=== PATIENT | female | born 1970 | race Caucasian/White ===

== ENCOUNTER 2017-01-11 16:47 | Emergency (ER) | payer MEDICAID ==
[2017-01-11] MEDS ORDERED: hydrOXYzine HCL 50 MG TAB PO PRN (17:16)
--- NOTE | 2017-01-11 17:22 | EDPHY ---
General Narrative: CHIEF COMPLAINT: Bladder spasms HISTORY OF PRESENT ILLNESS: Patient complains of sudden onset of bladder spasm and pain. This happened within the past hour. She was leaving the office of her surgeon to have riri removed from her laparotomy that occurred 10 days ago. She said she felt well until leaving the office. The pain happened very suddenly. It was a very sharp, spasm type pain. She could feel her heart beating it was so severe. She had no upper abdominal pain. The pain did radiate into the flanks. No nausea or vomiting. No fever or chills. No chest pain or shortness of breath. No generalized abdominal pain. She does feel that as she has urinated recently she has had difficulty completely emptying her bladder. She has no bleeding of any kind today or yesterday. She was discharged home for a very complicated admission for acute GI bleed requiring surgical intervention. She has had bowel movements postoperatively without any bleeding and complaints constipation. PREVIOUS ABDOMINAL SURGERIES/DIAGNOSES: Laparotomy with SBR January 08 REVIEW OF SYSTEMS: Ten systems reviewed and are negative unless otherwise noted in the HPI EXAMINATION: General Appearance: Alert, no distress. Anxious Head: normocephalic, atraumatic Eyes: Pupils equal and round, no conjunctival pallor or injection ENT, Mouth: Mucous membranes moist. Uvula midline. No erythema or edema. Neck: Normal inspection, supple, non-tender Respiratory: Lungs are clear to auscultation. No wheezing, rhonchi or crackles. Cardiovascular: Regular rate and rhythm. No murmur. Pulses intact distally. Gastrointestinal: Obese abdomen that is soft. Tenderness around the midline surgical incision that is clean, dry and intact. There is no purulence, fluctuance or erythema. No rebound or guarding. Mild CVA tenderness. Neurological: A&O, nonfocal Skin: Warm and dry, no rash. There is a laparotomy incision that is clean, dry and intact. No surrounding purulence, fluctuance or induration. Bruising about the forearms bilaterally. Extremities: Nontender, no pedal edema Psychiatric: Mood and affect normal DIFFERENTIAL DIAGNOSES: Including but not limited to bladder spasm, UTI, cystitis, urethritis, pyelonephritis MDM: 5:15 p.m. Acute bladder spasm and suprapubic pain. The patient feels that she could not actually void, and felt that there bladder was spasming so tight that she was difficulty urinating. She also felt that she was potentially having a panic attack/anxiety reaction is. She is resting comfortably but obviously anxious about this. Bladder scan has already been performed shows no residual volume. She is provided a urine sample for us. We will send a urinalysis and administer hydroxyzine for her possible anxiety component. She is comfortable with this plan. She is in no acute distress with stable vital signs. 5:40 p.m. Urinalysis does show evidence of urinary tract infection. She is feeling better with her hydroxyzine. I sat down and discussed the case with her and the likelihood that she does have a UTI is high. She agrees with this assessment. She says that she felt that she over-reacted from this. I reassured her that she has had a very difficult 2 weeks with a very severe illness and emergent hospitalization. Instructed her to take the antibiotics and monitor her symptoms over the next 24-48 hours. She is to return to the ER should she have any worsening pain, flank pain, fever, nausea vomiting. She is also to return to the ER for any bleeding from any site. She is comfortable this plan, she is much more calm at time of discharge, and she is discharged home in stable condition. ED Precautions: Worsening pain. Fever. Bloody stools. Bloody emesis. Constipation or diarrhea. SUPERVISION: Patient was evaluated in conjunction with the supervising physician. Please see their note for details. - History Smoking Status: Former smoker - Objective Vital Signs: Initial Vital Signs Temperature (C) 97.5 F 01/11/17 16:50 Heart Rate 94 01/11/17 16:50 Respiratory Rate 18 01/11/17 16:50 Blood Pressure 119/85 H 01/11/17 16:50 O2 Sat (%) 92 01/11/17 16:50 O2 Delivery Mode Room Air Allergies/Adverse Reactions: oxcarbazepine Allergy (Severe, Verified 01/11/17 16:56) Rash droperidol Allergy (Intermediate, Verified 01/11/17 16:56) Other-Enter Comments Home Medications: Medication Instructions Recorded Oxycodone HCl [Oxycontin] 10 mg PO 12/05/10 Sertraline HCl [Zoloft] mg PO DAILY 12/05/10 VALSARTAN [Diovan] 80 mg PO 12/05/10 clonAZEPAM [Klonopin] mg PO 12/05/10 WARFARIN SODIUM [Coumadin] 0 mg PO 05/31/11 KLONOPIN 09/25/15 Amitriptyline 100 mg 01/19/16 Atorvastatin Calcium 01/19/16 Cyclobenzaprine HCl 01/19/16 Oxycodone HCl 01/19/16 busPIRone 01/19/16 Cephalexin [Keflex (*)] 500 mg PO TID #30 cap 01/11/17 Laboratory Results: 01/11/17 17:10 Urine Color DENEEN Urine Appearance MODERATELY TURBID Urine pH 7.0 (5.0-7.5) Ur Specific [place] 1.008 (1.002-1.030) Urine Protein NEGATIVE (NEGATIVE) Urine Ketones NEGATIVE (NEGATIVE) Urine Blood 2+ H (NEGATIVE) Urine Nitrate POSITIVE H (NEGATIVE) Urine Bilirubin NEGATIVE (NEGATIVE) Urine Urobilinogen 2.0 EU H EU (0.2-1.0) Ur Leukocyte Esterase 3+ H (NEGATIVE) Urine RBC 25-50 /hpf H /hpf (0-3) Urine WBC 50-182 /hpf H /hpf (0-3) Ur Epithelial Cells TRACE /lpf /lpf (NONE-1+) Urine Bacteria 4+ /hpf H /hpf (NONE SEEN) Urine Mucus TRACE /lpf /lpf (NONE-1+) Ur Culture Indicated? INDICATED H (NI) Urine Glucose NEGATIVE (NEGATIVE) Departure - Departure Disposition: Home, Routine, Self-Care Clinical Impression: Bladder spasm UTI (urinary tract infection) Qualifiers: Urinary tract infection type: acute cystitis Hematuria presence: without hematuria Qualified Code(s): N30.00 - Acute cystitis without hematuria Condition: Good Instructions: Urinary Tract Infection in Women (ED) Additional Instructions: Medications as discussed. Follow up with primary care physician. Return to ER for any bleeding from any site or any abdominal pain Referrals: NOT,SURE [Other] - As per Instructions Merary Meneses MD [Medical Doctor] - As per Instructions Prescriptions: Cephalexin [Keflex (*)] 500 mg PO TID #30 cap
[2017-01-11 17:28] LABS: COLOR AMBER; LEUKOCYTE ESTERASE,URINE 3+ (NEGATIVE); NITRITE,URINE POSITIVE (NEGATIVE)
[2017-01-11 17:30] LABS: BACTERIA 4+ /hpf (NONE SEEN); MUCUS TRACE /lpf (NONE-1+); RBC,URINE 25-50 /hpf (0-3); WBC,URINE 50-182 /hpf (0-3)
[2017-01-11] MEDS ORDERED: CEPHALEXIN 500 MG CAP PO ONE ×2 (17:40→17:41)
[2017-01-11 18:02] VITALS: BP 128/76; PULSE 76; RESP 20; TEMP 98.1; O2SAT 96
== END 2017-01-11 18:02 | disposition home or self-care (01) ==
DX: N32.89 Other specified disorders of bladder (principal); N30.00 Acute cystitis without hematuria; B96.20 Unspecified Escherichia coli [E. coli] as the cause of diseases classified elsewhere; Z79.01 Long term (current) use of anticoagulants; Z87.891 Personal history of nicotine dependence

== ENCOUNTER 2017-05-31 16:46 | Emergency (ER) | payer MEDICAID ==
[2017-05-31 16:57] VITALS: PULSE 64
--- NOTE | 2017-05-31 17:34 | EDPHY ---
H & P Time Seen by Provider: 05/31/17 17:11 HPI/ROS: CHIEF COMPLAINT: Shortness of breath, "feeling hot" HISTORY OF PRESENT ILLNESS: The patient is a 46-year-old female with a history of factor 5 Leiden on Coumadin for previous PE who presents to the emergency department with shortness of breath. Patient states that over the past 2 months she has had a diffuse red colored skin rash. She seen a doctor multiple times for this. She states no one can figure out the diagnosis. She has been told she may be admitted positive this is making her feel hot. She states that for the past few days she has had increasing shortness of breath. No cough or fever. No chest pain. No new leg pain or swelling. She has been taking her Coumadin regularly. REVIEW OF SYSTEMS: My complete review of systems is negative except as mentioned in the HPI. Past Medical/Surgical History: Includes factor 5 Leiden, pulmonary embolus, reflex sympathetic dystrophy, chronic pain, GI bleed, pseudo-seizure, hypertension Past surgical history: Recent surgery for GI bleed Social history: The patient smokes. She uses THC. Smoking Status: Current every day smoker Physical Exam: 36.9, 113/90, 64, 18, 92% on room air GENERAL: Well-appearing, in no acute distress, alert. HEENT: Eyes normal to inspection, normal pharynx, no signs of dehydration. NECK: No thyromegaly, no lymphadenopathy, supple. RESPIRATORY: Clear to auscultation bilaterally, no rales, rhonchi or wheezing. Normal CVS: Regular rate and rhythm, no rubs, murmurs, or gallops. ABDOMEN: Soft, nontender, nondistended, no organomegaly. BACK: Normal to inspection, no CVA tenderness. SKIN: Patient is a diffuse red colored rash. This is not raised. There are no hives. No petechiae. warm, dry. No pallor. EXTREMITIES: No pedal edema, no calf tenderness, no Homans sign or cords, no joint swelling. NEURO/PSYCH: Alert and oriented x3, normal mood and affect, normal motor sensory exam. Constitutional: Initial Vital Signs Temperature (C) 36.9 C 05/31/17 16:55 Heart Rate 64 05/31/17 16:55 Respiratory Rate 18 05/31/17 16:55 Blood Pressure 113/90 H 05/31/17 16:55 O2 Sat (%) 92 05/31/17 16:55 O2 Delivery Mode Room Air Allergies/Adverse Reactions: oxcarbazepine Allergy (Severe, Verified 05/31/17 16:53) Rash droperidol Allergy (Intermediate, Verified 05/31/17 16:53) Other-Enter Comments Home Medications: Medication Instructions Recorded Oxycodone HCl [Oxycontin] 10 mg PO 12/05/10 WARFARIN SODIUM [Coumadin] 0 mg PO 05/31/11 Atorvastatin Calcium 01/19/16 Oxycodone HCl 01/19/16 busPIRone 01/19/16 Cephalexin [Keflex (*)] 500 mg PO TID #30 cap 01/11/17 predniSONE 20 mg PO DAILY 4 Days 05/31/17 Medical Decision Making - Diagnostics Imaging Results: Imaging Impressions Chest X-Ray 05/31/17 17:28 Impression: No acute pulmonary disease. ED Course/Re-evaluation: In the emergency department I discussed possible etiologies with the patient. I answered all her questions. I reviewed her previous medical record. An IV was placed. Laboratory studies were obtained. Because the patient has a skin rash and shortness of breath I considered allergic reaction. She was given Solu -Medrol 125, Pepcid 20 mg IV and Benadryl 25 mg IV. EKG shows normal sinus rhythm, normal rate, normal axis, normal intervals. There are no ST or T-wave abnormalities. EKG is normal as interpreted by me. Patient has D-dimer was 0.27. She is anticoagulated. Her CBC chemistry unremarkable. Chest x-ray: No acute disease. On recheck the patient was feeling better after receiving the medication. I discussed all the findings with the patient and answered her questions. She will be given a 4 day course of prednisone. She is given warnings prior to leaving. She will return with worsening symptoms. Differential Diagnosis: My differential includes but is not limited to pneumonia, bronchitis, CHF, ACS, PE, allergic reaction - Data Points Laboratory Results: Laboratory Results 05/31/17 17:24 05/31/17 17:24 05/31/17 05/31/17 05/31/17 17:50 17:24 17:24 WBC RBC Hgb Hct MCV MCH MCHC RDW Plt Count MPV Neut % (Auto) Lymph % (Auto) [place] % (Auto) Eos % (Auto) Baso % (Auto) Nucleat RBC Rel Count Absolute Neuts (auto) Absolute Lymphs (auto) Absolute Monos (auto) Absolute Eos (auto) Absolute Basos (auto) Absolute Nucleated RBC Immature Gran % Immature Gran # PT 27.6 SEC H SEC (12.0-15.0) INR 2.54 H (0.83-1.16) APTT 41.4 SEC H SEC (23.0-38.0) D-Dimer < 0.27 ug/mLFEU ug/mLFEU (0.00-0.50) Sodium 138 mEq/L mEq/L (134-144) Potassium 4.5 mEq/L mEq/L (3.5-5.2) Chloride 102 mEq/L mEq/L (97-110) Carbon Dioxide 25 mEq/l mEq/l (22-31) Anion Gap 11 mEq/L mEq/L (8-16) BUN 17 mg/dL mg/dL (7-23) Creatinine 0.8 mg/dL mg/dL (0.6-1.0) Estimated GFR > 60 Glucose 121 mg/dL H mg/dL (70-100) Calcium 9.7 mg/dL mg/dL (8.5-10.4) Troponin I < 0.012 ng/mL ng/mL (0.000-0.034) NT-Pro-B Natriuret Pep 253 pg/mL H pg/mL (0-125) Urine Color YELLOW Urine Appearance HAZY Urine pH 5.0 (5.0-7.5) Ur Specific [place] 1.018 (1.002-1.030) Urine Protein NEGATIVE (NEGATIVE) Urine Ketones NEGATIVE (NEGATIVE) Urine Blood NEGATIVE (NEGATIVE) Urine Nitrate NEGATIVE (NEGATIVE) Urine Bilirubin NEGATIVE (NEGATIVE) Urine Urobilinogen NEGATIVE EU EU (0.2-1.0) Ur Leukocyte Esterase NEGATIVE (NEGATIVE) Urine Glucose NEGATIVE (NEGATIVE) 05/31/17 17:24 WBC 6.04 10^3/uL 10^3/uL (3.80-9.50) RBC 5.21 10^6/uL 10^6/uL (4.18-5.33) Hgb 14.3 g/dL g/dL (12.6-16.3) Hct 41.6 % % (38.0-47.0) MCV 79.8 fL L fL (81.5-99.8) MCH 27.4 pg L pg (27.9-34.1) MCHC 34.4 g/dL g/dL (32.4-36.7) RDW 14.7 % % (11.5-15.2) Plt Count 180 10^3/uL 10^3/uL (150-400) MPV 8.3 fL L fL (8.7-11.7) Neut % (Auto) 56.6 % % (39.3-74.2) Lymph % (Auto) 31.0 % % (15.0-45.0) [place] % (Auto) 11.4 % % (4.5-13.0) Eos % (Auto) 0.3 % L % (0.6-7.6) Baso % (Auto) 0.0 % L % (0.3-1.7) Nucleat RBC Rel Count 0.0 % % (0.0-0.2) Absolute Neuts (auto) 3.42 10^3/uL 10^3/uL (1.70-6.50) Absolute Lymphs (auto) 1.87 10^3/uL 10^3/uL (1.00-3.00) Absolute Monos (auto) 0.69 10^3/uL 10^3/uL (0.30-0.80) Absolute Eos (auto) 0.02 10^3/uL L 10^3/uL (0.03-0.40) Absolute Basos (auto) 0.00 10^3/uL L 10^3/uL (0.02-0.10) Absolute Nucleated RBC 0.00 10^3/uL 10^3/uL (0-0.01) Immature Gran % 0.7 % % (0.0-1.1) Immature Gran # 0.04 10^3/uL 10^3/uL (0.00-0.10) PT INR APTT D-Dimer Sodium Potassium Chloride Carbon Dioxide Anion Gap BUN Creatinine Estimated GFR Glucose Calcium Troponin I NT-Pro-B Natriuret Pep Urine Color Urine Appearance Urine pH Ur Specific [place] Urine Protein Urine Ketones Urine Blood Urine Nitrate Urine Bilirubin Urine Urobilinogen Ur Leukocyte Esterase Urine Glucose Medications Given: Discontinued Medications Diphenhydramine HCl (Benadryl Injection) 25 mg IVP EDNOW ONE Stop: 05/31/17 17:36 Last Admin: 05/31/17 17:53 Dose: 25 mg Methylprednisolone Sodium Succinate (Solu-Medrol) 125 mg IVP EDNOW ONE Stop: 05/31/17 17:36 Last Admin: 05/31/17 17:53 Dose: 125 mg Departure - Departure Disposition: Home, Routine, Self-Care Clinical Impression: Shortness of breath Condition: Good Instructions: Dyspnea (ED) Additional Instructions: Return with increasing shortness of breath, fever, leg pain, swelling or any other concerns. Referrals: ALPHONSO ISRAEL [Primary Care Provider] - 5-7 days, if not improved Prescriptions: predniSONE 20 mg PO DAILY 4 Days
[2017-05-31] MEDS ORDERED: methylPREDNISolone SOD SUCC 125 MG/2 ML VIAL IVP ONE (17:35)
[2017-05-31 17:39] LABS: % IMMATURE GRANULYOCYTES 0.7 % (0.0-1.1); ABSOLUTE IMMATURE GRANULOCYTES 0.04 10^3/uL (0.00-0.10); ADD DIFF? NO; ADD MORPH? NO; ADD SCAN? NO; ATYPICAL LYMPHOCYTE FLAG 10 (0-99); FRAGMENT RBC FLAG 0 (0-99); HEMATOCRIT 41.6 % (38.0-47.0); HEMOGLOBIN 14.3 g/dL (12.6-16.3); LEFT SHIFT FLG 0 (0-99); LIPEMIA HEMOLYSIS FLAG 90 (0-99); MEAN CELL HEMOGLOBIN 27.4 pg (27.9-34.1); MEAN CELL HEMOGLOBIN CONCENTR. 34.4 g/dL (32.4-36.7); MEAN CELL VOLUME 79.8 fL (81.5-99.8); MEAN PLATELET VOLUME 8.3 fL (8.7-11.7); PLATELET CLUMPS FLAG 0 (0-99); PLATELET COUNT 180 10^3/uL (150-400); RED BLOOD CELL COUNT 5.21 10^6/uL (4.18-5.33); RED CELL DISTRIBUTION WIDTH 14.7 % (11.5-15.2)
--- NOTE | 2017-05-31 17:45 | CPEKG ---
Heart Rate: 58 RR Interval: 1034 P-R Interval: 148 QRSD Interval: 104 QT Interval: 468 QTC Interval: 460 P [place]: 54 QRS [place]: 48 T Wave [place]: 4 EKG Severity - BORDERLINE ECG - EKG Impression: SINUS RHYTHM EKG Impression: BORDERLINE T WAVE ABNORMALITIES Electronically Signed By: Dania Valentine 31-May-2017 23:05:49
[2017-05-31 17:52] LABS: ANION GAP 11 mEq/L (8-16); CALCIUM 9.7 mg/dL (8.5-10.4); CARBON DIOXIDE 25 mEq/l (22-31); CHLORIDE 102 mEq/L (97-110); CREATININE 0.8 mg/dL (0.6-1.0); GLOMERULAR FILTRATION RATE > 60; GLUCOSE 121 mg/dL (70-100); POTASSIUM 4.5 mEq/L (3.5-5.2); SODIUM 138 mEq/L (134-144)
[2017-05-31 17:55] LABS: INR 2.54 (0.83-1.16); PROTIME(PATIENT) 27.6 SEC (12.0-15.0)
[2017-05-31 17:56] LABS: APTT 41.4 SEC (23.0-38.0)
[2017-05-31 18:04] LABS: TROPONIN I < 0.012 ng/mL (0.000-0.034)
[2017-05-31 18:08] LABS: COLOR YELLOW; LEUKOCYTE ESTERASE,URINE NEGATIVE (NEGATIVE); NITRITE,URINE NEGATIVE (NEGATIVE)
[2017-05-31 18:35] VITALS: BP 121/78; RESP 16; TEMP 97.9; O2SAT 94
== END 2017-05-31 19:42 | disposition home or self-care (01) ==
DX: R06.02 Shortness of breath (principal); I10 Essential (primary) hypertension; F17.200 Nicotine dependence, unspecified, uncomplicated; Z79.01 Long term (current) use of anticoagulants
CPT/HCPCS: 96374; J1200

== ENCOUNTER 2019-02-02 22:47 | Emergency (ER) | payer MEDICAID ==
[2019-02-02 22:59] VITALS: BP 139/96
--- NOTE | 2019-02-02 23:11 | EDPHY ---
H & P Stated Complaint: Bilateral shoulder and armpit pain since this afternoon Time Seen by Provider: 02/02/19 23:11 HPI/ROS: HPI CHIEF COMPLAINT: Red Rash, arms, chest, shoulders. HISTORY OF PRESENT ILLNESS: 48-year-old female, she has a history of PE and factor 5 Leiden deficiency, as well as chronic pain, RSD, history of GI bleed, pseudoseizures, hypertension, states that she is currently living out of her car. She presents emergency room stating that she believes her red rash on her arms and chest gotten worse. She is unclear of the etiology of this. She reports to me she has had this rash along time but it has gotten worse. She does report she seen her primary care doctor for this multiple times but is unclear exactly what the rash is. She denies any chest pain or shortness of breath or pleuritic pain. Denies fever. She states she is living out of her car but denies any recent direct sunlight. No new trauma. Denies any new medications. States it does not really itch. Has some burning sensation to her skin. Denies any recent fever. She does report the rash is more red than normal. But has not spread Past Medical History: Significant medical history of pulmonary embolism, chronic rash, factor 5 Leiden deficiency, RSD, GI bleed, hypertension, pseudo seizure Past Surgical History: Denies recent surgical history Social History: Denies daily use of drugs or alcohol. Homeless. Living in her car. Family History: Noncontributory ROS REVIEW OF SYSTEMS: 10 Systems were reviewed and negative with the exception of the elements mentioned in the history of present illness. Exam Constitutional triage nursing summary reviewed, vital signs reviewed, awake/ alert. Eyes normal conjunctivae and sclera, EOMI, PERRLA. HENT normal inspection, atraumatic, moist mucus membranes, no epistaxis, neck supple/ no meningismus, no raccoon eyes. Respiratory clear to auscultation bilaterally, normal breath sounds, no respiratory distress, no wheezing. Cardiovascular rate normal, regular rhythm, no murmur, no edema, distal pulses normal. Gastrointestinal soft, non-tender, no rebound, no guarding, normal bowel sounds, no distension, no pulsatile mass. Genitourinary no CVA tenderness. Musculoskeletal no midline vertebral tenderness, full range of motion, no calf swelling, no tenderness of extremities, no meningismus, good pulses, neurovascularly intact. Skin erythematous blanchable alarm her rash mainly to her anterior chest and bilateral upper arms and shoulders. It is on the area where direct sunlight would be exposed. Her tank top that she is wearing has take tap shoulder straps that where they lay on her chest and shoulders does not have rash. This appears to be where direct sunlight were skin is exposed direct sunlight. There is no particular purpura, no skin sloughing, no blisters. Neurologic awake, alert and oriented x 3, AAOx3, moves all 4 extremities equally, motor intact, sensory intact, CN II-XII intact, normal cerebellar, normal vision, normal speech. Psychiatric normal mood/affect. Heme/Lymph/Immune no lymphadenopathy. Differential Diagnosis: Includes but is not limited to in a particular order sunburn, toxic affects of some light, chronic rash, acute on chronic rash, allergic reaction. Medical Decision Making: Plan for this patient p.o. Benadryl, p.o. Pepcid, p.o. Prednisone, and Tylenol and re-evaluate. Re-evaluation: 1:33 a.m. Nursing staff notified the patient eloped from the emergency room. She did not notify staff that she was leaving. She did not have an IV. She was given Benadryl, Pepcid, prednisone and Tylenol for red skin that appeared to be either sunburn allergic reaction or both. Or some type of photosensitivity dermatitis. Plan was for re-evaluation. However patient left the emergency room prior to this. Did not notify anybody. Source: Patient - Personal History LMP (Females 10-55): Post Menopausal Current Tetanus Diphtheria and Acellular Pertussis (TDAP): No Tetanus Vaccine Date: less than 10 years - Medical/Surgical History Hx Asthma: No Hx Chronic Respiratory Disease: No Hx Diabetes: No Hx Cardiac Disease: No Hx Renal Disease: No Hx Cirrhosis: No Hx Alcoholism: No Hx HIV/AIDS: No Hx Splenectomy or Spleen Trauma: No Other PMH: 3 lumbar surgeries-blown disks, PE, Reflux Sympathetic Dystrophy, clotting disorder-Leiden factor 5, chronic pain, Abdo,david surgery for GI Bleed , pseudoseizure. HTN, Mood problem. - Social History Smoking Status: Current every day smoker Constitutional: Initial Vital Signs Temperature (C) 36.9 C 02/02/19 22:56 Heart Rate 71 02/02/19 22:56 Respiratory Rate 16 02/02/19 22:56 Blood Pressure 139/96 H 02/02/19 22:56 O2 Sat (%) 92 02/02/19 22:56 O2 Delivery Mode Room Air Allergies/Adverse Reactions: droperidol Allergy (Intermediate, Verified 02/02/19 22:55) Other-Enter Comments Home Medications: Medication Instructions Recorded Atorvastatin Calcium 01/19/16 busPIRone 01/19/16 Propranolol HCl 02/02/19 Xarelto 02/02/19 Medical Decision Making - Data Points Medications Given: Discontinued Medications Acetaminophen (Tylenol) 1,000 mg PO EDNOW ONE Stop: 02/02/19 23:36 Last Admin: 02/02/19 23:46 Dose: 1,000 mg Diphenhydramine HCl (Benadryl) 25 mg PO EDNOW ONE Stop: 02/02/19 23:36 Last Admin: 02/02/19 23:47 Dose: 25 mg Famotidine (Pepcid) 20 mg PO EDNOW ONE Stop: 02/02/19 23:40 Last Admin: 02/02/19 23:47 Dose: 20 mg Prednisone (Prednisone) 60 mg PO EDNOW ONE Stop: 02/02/19 23:40 Last Admin: 02/02/19 23:46 Dose: 60 mg Departure - Departure Disposition: Against Medical Advice Clinical Impression: Rash Condition: Good Instructions: Acute Rash (ED) Additional Instructions: 1. I would keep your arms covered from direct sunlight. Referrals: NONE *PRIMARY CARE P,. [Primary Care Provider] - As per Instructions
[2019-02-02] MEDS: predniSONE 20 MG TAB PO ONE (23:46)
[2019-02-02] MEDS: ACETAMINOPHEN 500 MG TAB PO ONE (23:46)
[2019-02-02] MEDS: FAMOTIDINE 20 MG TAB PO ONE (23:47)
[2019-02-02] MEDS: diphenhydrAMINE 25 MG CAP PO ONE (23:47)
== END 2019-02-03 01:34 | disposition left against medical advice (07) ==
DX: R21 Rash and other nonspecific skin eruption (principal); Z86.711 Personal history of pulmonary embolism; Z59.0 Homelessness
CPT/HCPCS: J7512

== ENCOUNTER 2019-02-15 06:04 | Emergency (ER) | payer MEDICAID ==
[2019-02-15 06:13] VITALS: BP 145/83
--- NOTE | 2019-02-15 07:05 | EDPHY ---
H & P Stated Complaint: rectum pain Time Seen by Provider: 02/15/19 06:58 HPI/ROS: CHIEF COMPLAINT: Requesting longterm HISTORY OF PRESENT ILLNESS: The patient is a 48-year-old homeless female who states that she has slept last night in her car and she is asking for help with longterm. She tells me that she will not go to or homeless longterm here in town because she "has a sense of smell". She told triage that she was having rectal pain. She tells me that she thinks she may have hemorrhoid but does not want me to examine it. She does have a history of PE on Xarelto as well as factor 5 Leiden deficiency as well as chronic abdominal and back pain, reflex sympathetic dystrophy and pseudoseizures. She states that she is unable to care for herself and wants to be hospitalized for 3 days. She denies recent drug or alcohol abuse. Severity: Moderate Modifying factors: None REVIEW OF SYSTEMS: Constitutional: denies: chills, fever, recent illness, recent injury EENTM: denies: blurred vision, double vision, nose congestion Respiratory: denies: cough, shortness of breath Cardiac: denies: chest pain, irregular heart rate, lightheadedness, palpitations Gastrointestinal/Abdominal: denies: abdominal pain, diarrhea, nausea, vomiting, blood streaked stools Genitourinary: denies: dysuria, frequency, hematuria, pain Musculoskeletal: denies: joint pain, muscle pain Skin: denies: lesions, rash, jaundice, bruising Neurological: denies: headache, numbness, paresthesia, tingling, dizziness, weakness Hematologic/Lymphatic: denies: blood clots, easy bleeding, easy bruising Immunologic/allergic: denies: HIV/AIDS, transplant 10 systems reviewed and negative except as noted EXAM: GENERAL: Well-appearing, overweight and in no acute distress. HEAD: Atraumatic, normocephalic. EYES: Pupils equal round and reactive to light, extraocular movements intact, sclera anicteric, conjunctiva are normal. ENT: nares patent, oropharynx clear without exudates. Moist mucous membranes. NECK: Normal range of motion, supple without lymphadenopathy or JVD. LUNGS: Breath sounds clear HEART: Regular rate and rhythm without murmurs, rubs or gallops. ABDOMEN: Soft, nontender, normoactive bowel sounds. No guarding, no rebound. No masses appreciated. BACK: No pain EXTREMITIES: Normal range of motion, no pitting or edema. No clubbing or cyanosis. NEUROLOGICAL: Cranial nerves II through XII grossly intact. Normal speech, normal gait. 5/5 strength, normal movement in all extremities, normal sensation , normal reflexes PSYCH: Normal mood, normal affect. SKIN: Warm, dry, normal turgor, no visible rashes or lesions. Source: Patient Exam Limitations: No limitations - Personal History LMP (Females 10-55): Post Menopausal Current Tetanus/Diphtheria Vaccine: Yes Current Tetanus Diphtheria and Acellular Pertussis (TDAP): Yes Tetanus Vaccine Date: less than 10 years - Medical/Surgical History Hx Asthma: No Hx Chronic Respiratory Disease: No Hx Diabetes: No Hx Cardiac Disease: No Hx Renal Disease: No Hx Cirrhosis: No Hx Alcoholism: No Hx HIV/AIDS: No Hx Splenectomy or Spleen Trauma: No Other PMH: 3 lumbar surgeries-blown disks, PE, Reflux Sympathetic Dystrophy, clotting disorder-Leiden factor 5, chronic pain, Abdo,david surgery for GI Bleed , pseudoseizure. HTN, Mood problem, sacrum surgery - Family History Significant Family History: No pertinent family hx - Social History Smoking Status: Current every day smoker Alcohol Use: Sober Constitutional: Initial Vital Signs Temperature (C) 36.4 C 02/15/19 06:10 Heart Rate 61 02/15/19 06:10 Respiratory Rate 16 02/15/19 06:10 Blood Pressure 145/83 H 02/15/19 06:10 O2 Sat (%) 92 02/15/19 06:10 O2 Delivery Mode Room Air Allergies/Adverse Reactions: droperidol Allergy (Intermediate, Verified 02/15/19 06:13) Other-Enter Comments Home Medications: Medication Instructions Recorded Atorvastatin Calcium 01/19/16 busPIRone 01/19/16 Propranolol HCl 02/02/19 Xarelto 02/02/19 Medical Decision Making ED Course/Re-evaluation: The patient is clearly malingering and admits to doing so. She is looking for longterm. She refuses to go to the [facility] longterm because she states that it smells. She asked to stay in the hospital for 3 days. She said that if we do not let her stay she will claim to be suicidal. I offered her help to get to the longterm which she declines. She then stood up and walked out of the department. Differential Diagnosis: Partial list of the Differential diagnosis considered include but were not limited to; malingering, hemorrhoid, polysubstance abuse and although unlikely based on the history and physical exam, I also considered rectal fissure, sexual assault, infection. Departure - Departure Disposition: Home, Routine, Self-Care Clinical Impression: Malingering Condition: Good Instructions: Hemorrhoids (ED) Referrals: NONE *PRIMARY CARE P,. [Primary Care Provider] - As per Instructions [facility] [Clinic] - As per Instructions
== END 2019-02-15 07:07 | disposition home or self-care (01) ==
DX: Z76.5 Malingerer [conscious simulation] (principal); D84.9 Immunodeficiency, unspecified; F17.200 Nicotine dependence, unspecified, uncomplicated; Z86.711 Personal history of pulmonary embolism; Z79.01 Long term (current) use of anticoagulants